=== PATIENT | female | born 1980 | race Two or more races ===

== ENCOUNTER 2018-05-19 17:39 | Emergency (ER) | payer MEDICAID, OTHER, SELFPAY ==
[~2018-05-19] VITALS: Ht 162.6 cm; Wt 68.2 kg
[2018-05-19 18:05] LABS: MICROSCOPIC AUTO
[2018-05-19 18:17] LABS: BASOPHILS # (AUTO) 0.05 x10^3/uL (0-0.1); BASOPHILS % (AUTO) 1 % (0-1); EOSINOPHILS # (AUTO) 0.17 x10^3/uL (0-0.4); EOSINOPHILS % (AUTO) 2 % (1-7); LYMPHOCYTES # (AUTO) 2.43 x10^3/uL (1-3.4); LYMPHOCYTES % (AUTO) 27 % (22-44); MD NO; MEAN CORPUSCULAR HEMOGLOBIN 29.4 pg (27.0-34.8); MEAN CORPUSCULAR HGB CONC 33.8 g/dL (32.4-35.8); MEAN PLATELET VOLUME 7.7 fL (7.4-10.4); MONOCYTES # (AUTO) 0.68 x10^3/uL (0.2-0.8); MONOCYTES % (AUTO) 8 % (2-9); NEUTROPHILS # (AUTO) 5.71 x10^3/uL (1.8-6.8); NEUTROPHILS % (AUTO) 63 % (42-75); PLATELET COUNT 373 x10^3/uL (130-400); RED BLOOD COUNT 4.62 x10^6/uL (3.82-5.3); RED CELL DISTRIBUTION WIDTH 13.5 % (9.6-15.2)
[2018-05-19 18:18] LABS: CULTURE INDICATED? YES
[2018-05-19 18:24] LABS: ALBUMIN 3.8 g/dL (3.4-5.0); ANION GAP 6 mmol/L (5-15); CALCIUM 8.9 mg/dL (8.5-10.1); CHLORIDE 107 mmol/L (98-107); CREATININE 0.57 mg/dL (0.55-1.02)
--- NOTE | 2018-05-19 19:11 | NUR ---
attempted to call pt to room at [id number], pt in , pt now to room from lobby
--- NOTE | 2018-05-19 19:34 | NUR ---
ALL RESULTS BACK. PT UP FOR RECHECK. PT RESTING IN BED WITH HOSPITAL GOWN. CALL LIGHT IN HAND.
[2018-05-19 21:51] VITALS: BP 117/84
== END 2018-05-19 22:15 | disposition home or self-care (01) ==
LOC: ED 21:55
DX: Z32.01 Encounter for pregnancy test, result positive (principal); O20.9 Hemorrhage in early pregnancy, unspecified; Z3A.01 Less than 8 weeks gestation of pregnancy
CPT/HCPCS: 36415; 76830; 80048; 81001; 82040; 84702; 85025; 86901; 87077; 87086; 99284